=== PATIENT | male | born 1940 | race Hispanic/Latino ===

== ENCOUNTER 2016-03-17 08:25 | Emergency (ER) | payer MEDICARE ==
[2016-03-17] MEDS ORDERED: predniSONE 20 MG TAB ONE (08:54)
[2016-03-17] MEDS ORDERED: predniSONE 10 MG TAB ONE (08:54)
[2016-03-17] MEDS ORDERED: diphenhydrAMINE HCl 25 MG CAP ONE (08:54)
[2016-03-17] MEDS ORDERED: Famotidine 20 MG TAB ONE (08:54)
--- NOTE | 2016-03-17 09:28 | PICIS ---
[facility] EMERGENCY RECORD TRIAGE (TueMar 17, 2016 08:31 EPIE) TRIAGE NOTES: Pt states that his face and body started itching on Tuesday morning. Pt states that he drank coffee with a new creamer he has never tried. (TueMar 17, 2016 08:31 EPIE) PATIENT: NAME: Nilesh Wlash, AGE: 75, GENDER: male, : Tue1940, TIME OF GREET: TueMar 17, 2016 08:25, PREFERRED LANGUAGE: Turkmen, ETHNICITY: or , ECODE BILLING MAP: [facility], SSN: [id number], Zip Code: [address], KG WEIGHT: 70.31, PHONE: , , , PERSON ID: [id number], PCP: Richelle, Vinayak. (TueMar 17, 2016 08:31 EPIE) COMPLAINT: FACIAL SWELLING. (TueMar 17, 2016 08:31 EPIE) ADMISSION: URGENCY: 4 Non Urgent, ADMISSION SOURCE: Home, TRANSPORT: CAR, BED: TRIAGE. (TueMar 17, 2016 08:31 EPIE) TRIAGE SCREENING: Patient denies suicidal ideation, Patient denies presence of domestic violence. (08:32 EPIE) TREATMENTS IN PROGRESS: Treatments given Prehospital: none. (08:32 EPIE) PROVIDERS: TRIAGE NURSE: Pura Daley RN. (TueMar 17, 2016 08:31 EPIE) VITAL SIGNS: BP 92/50, Pulse 79, Resp 20, (Non-Labored), Temp 96.2, (Oral), O2 Sat 94, on Room Air, Time 03/17/2016 08:29. (08:29 EPIE) PREVIOUS VISIT ALLERGIES: No Known Drug Allergies. (TueMar 17, 2016 08:31 EPIE) No Known Drug Allergies. (08:32 EPIE) KNOWN ALLERGIES No Known Drug Allergies CURRENT MEDICATIONS (08:31 EPIE) Unknown VITAL SIGNS VITAL SIGNS: BP: 92/50, Pulse: 79, Resp: 20 (Non-Labored), Temp: 96.2 (Oral), O2 sat: 94 on Room Air, Time: 03/17/2016 08:29. (08:29 EPIE) BP: 94/52, Pulse: 73, Resp: 18 (Non-Labored), O2 sat: 95 on Room Air, Time: 03/17/2016 08:42. (08:42 EPIE) NURSING ASSESSMENT: SKIN (08:42 EPIE) CONSTITUTIONAL: Patient arrives ambulatory, Gait steady, History obtained from patient, Patient appears comfortable, Patient cooperative, Patient alert, Oriented to person, place and time, Skin warm, Skin dry, Skin normal in color, Mucous membranes pink, Mucous membranes moist, Patient is well-groomed, Pt states that his face and body started itching on Tuesday morning. Pt states that he drank coffee with a new creamer he has never tried. No SOB. PAIN: itching pain, diffuse body, Patient rates pain as 0 out of 10. &a-1R&a+25V*p+0X*x9020X*c202B*c15G*c2P*p-0X&a-25V&a+1R Name: Saravia Nilesh Jorge : 1940 M75 MedRec: [id number] AcctNum: [id number] Prepared: TueMar 17, 2016 21:29 by Interface Page 1 of 6 pMD [facility] EMERGENCY RECORD SKIN: Skin assessment findings include skin warm, Skin dry, Skin normal in color, Notes: Pt has discoloring on bilateral hands (darker). No obvious rash observed. NURSING PROCEDURE: DISCHARGE NOTE (09:01 EPIE) DISCHARGE: Patient discharged to home, ambulating without assistance, family driving, accompanied by other family member, Summary of Care printed/ provided, Discharge instructions given to patient, Simple or moderate discharge teaching performed, Prescriptions given and instructions on side effects given, Name of prescription(s) given: prednisone, Above person(s) verbalized understanding of discharge instructions and follow-up care. BELONGINGS: Belongings and valuables with patient upon arrival to the Emergency Department include:, Belongings and valuables with patient at time of discharge include:, Belongings remain with patient, Valuables remain with patient. MEDICATION ADMINISTRATION SUMMARY Drug Name: Pepcid oral, Dose Ordered: 20 mg, Route: Oral, Status: Given, Time: 09:00 03/17/2016, Drug Name: Benadryl Allergy, Dose Ordered: 25 mg, Route: Oral, Status: Given, Time: 09:00 03/17/2016, Drug Name: predniSONE oral, Dose Ordered: 50 mg, Route: Oral, Status: Given, Time: 09:00 03/17/2016, Detailed record available in Medication Service section. MEDICATION SERVICE (09:00 [facility]) Benadryl Allergy: Order: Benadryl Allergy (diphenhydramine HCl) - Dose: 25 mg : Oral Schedule: Now Ordered by: Supa Richardson MD Entered by: Supa Richardson MD TueMar 17, 2016 08:51 , Acknowledged by: Pura Daley RN TueMar 17, 2016 08:51 Documented as given by: Pura Daley RN TueMar 17, 2016 09:00 Patient, Medication, Dose, Route and Time verified prior to administration. Amount given: 25mg, Site: Medication administered P.O., Correct patient, time, route, dose and medication confirmed prior to administration, Patient advised of actions and side-effects prior to administration, Allergies confirmed and medications reviewed prior to administration. Pepcid oral: Order: Pepcid oral (famotidine) - Dose: 20 mg : Oral Schedule: Now Ordered by: Supa Richardson MD Entered by: Supa Richardson MD TueMar 17, 2016 08:51 , Acknowledged by: Pura Daley RN TueMar 17, 2016 08:52 Documented as given by: Pura Daley RN TueMar 17, 2016 09:00 Patient, Medication, Dose, Route and Time verified prior to &a-1R&a+25V*p+0X*k4569R*c202B*c15G*c2P*p-0X&a-25V&a+1R Name: Saravia Nilesh Jorge : 1940 M75 MedRec: [id number] AcctNum: [id number] Prepared: TueMar 17, 2016 21:29 by Interface Page 2 of 6 pMD [facility] EMERGENCY RECORD administration. Amount given: 20mg, Site: Medication administered P.O., Correct patient, time, route, dose and medication confirmed prior to administration, Patient advised of actions and side-effects prior to administration, Allergies confirmed and medications reviewed prior to administration. predniSONE oral: Order: predniSONE oral (prednisone) - Dose: 50 mg : Oral Schedule: Now Ordered by: Supa Richardson MD Entered by: Supa Richardson MD TueMar 17, 2016 08:50 , Acknowledged by: Pura Daley RN TueMar 17, 2016 08:51 Documented as given by: Pura Daley RN TueMar 17, 2016 09:00 Patient, Medication, Dose, Route and Time verified prior to administration. Amount given: 50mg, Site: Medication administered P.O., Correct patient, time, route, dose and medication confirmed prior to administration, Patient advised of actions and side-effects prior to administration, Allergies confirmed and medications reviewed prior to administration. HPI ALLERGY (08:52 BPIC) CHIEF COMPLAINT: Patient presents for evaluation of itching, Patient presents for evaluation of rash. HISTORIAN: History provided by patient, pt drank a coffee with new creamer 2 days ago and started having itching and a rash show up 5 hours later. the rash and itching has continued until this time. no breathing or swallowing difficulties. rash is red and pruritic on his arms and legs. ROS (08:53 BPIC) CONSTITUTIONAL: Negative constitutional review of systems, Historian denies chills, denies fever. EYES: Negative eye review of systems. ENT: Negative ears, nose, throat review of systems. CARDIOVASCULAR: Negative cardiovascular review of systems, Historian denies chest pain, denies palpitations. RESPIRATORY: Negative respiratory review of systems, Historian denies cough, denies shortness of breath. GI: Negative gastrointestinal review of systems, Historian denies abdominal pain, denies constipation, denies diarrhea. MUSCULOSKELETAL: Negative musculoskeletal review of systems. SKIN: see hpi. NEUROLOGIC: Negative neurologic review of systems. ENDOCRINE: Negative endocrine review of systems. HEMO/LYMPHATIC: Normal hematologic/lymphatic system review. PSYCHIATRIC: Negative psychiatric review of systems. NOTES: All other ROS is negative except as listed in HPI. &a-1R&a+25V*p+0X*d7283C*c202B*c15G*c2P*p-0X&a-25V&a+1R Name: Nilesh Walsh : 1940 M75 MedRec: [id number] AcctNum: [id number] Prepared: TueMar 17, 2016 21:29 by Interface Page 3 of 6 pMD [facility] EMERGENCY RECORD PAST MEDICAL HISTORY MEDICAL HISTORY: Past medical history includes cardiac history, coronary artery disease, Past medical history includes history of hyperlipidemia, high cholesterol, Past medical history includes history of hypertension. (08:32 EPIE) MALE SURGICAL HISTORY: Surgical history of coronary artery bypass graft surgery, four vessels, Date of surgery 03/15/11. (08:32 EPIE) SOCIAL HISTORY: Patient is a former tobacco user, smoked cigarettes, Patient quit smoking more than 10 years ago, , Patient denies alcohol use, Patient denies drug use. (08:32 EPIE) NOTES: I have reviewed and agree with the PMH/PSxH/FamHx/SocHx obtained by the nurse. (08:53 BPIC) PHYSICAL EXAM (08:53 BPIC) CONSTITUTIONAL: Vital signs reviewed, Patient appears non toxic, Patient alert and oriented to person, place and time, Pt is in no apparent distress. HEAD: Head exam included findings of head atraumatic, normocephalic. EYES: Eye exam included findings of eyelids normal to inspection, Pupils equally round and reactive to light, Extraocular muscles intact. ENT: ENT exam normal, Nose exam normal, no nasal deformity, no bleeding from nares, Pharynx exam normal, Mouth exam normal, mucous membranes moist. NECK: Neck exam included findings of normal range of motion, Trachea midline. RESPIRATORY CHEST: Respiratory and chest exam normal, Breath sounds clear, No wheezing, No rales, Chest exam included findings of chest movement symmetrical, Chest expansion equal. CARDIOVASCULAR: Cardiovascular assessment normal, Cardiovascular exam included findings of heart rate regular rate and rhythm, Heart sounds normal. ABDOMEN MALE: Abdominal exam included findings of abdomen nontender, Bowel sounds normal, no mass, no pulsatile masses, no peritoneal signs, no rigidity, no guarding, no rebound. BACK: Back exam included findings of normal inspection, range of motion normal, no costovertebral angle tenderness. UPPER EXTREMITY: Upper extremity exam included findings of inspection normal, Range of motion normal. LOWER EXTREMITY: Lower extremity exam included findings of inspection normal, Range of motion normal. NEURO: Neuro exam findings include patient oriented to person, place and time, Speech normal, no focal motor deficits, no focal sensory deficits. SKIN: Rash present, macular, erythematous patches on both arms. LYMPHATIC: Lymphatic exam normal. PSYCHIATRIC: Psychiatric exam included findings of patient &a-1R&a+25V*p+0X*s1928E*c202B*c15G*c2P*p-0X&a-25V&a+1R Name: Nilesh Walsh : 1940 M75 MedRec: [id number] AcctNum: [id number] Prepared: TueMar 17, 2016 21:29 by Interface Page 4 of 6 pMD [facility] EMERGENCY RECORD oriented to person place and time, Normal affect. EVENTS TRANSFER: Triage to Emergency Triage. (08:31 EPIE) Emergency Triage to Emergency Room -02. (08:32 EPIE) Removed from Emergency Emergency Room -02. (09:04 EPIE) DOCTOR NOTES (08:54 BPIC) TEXT: I discussed the diagnosis with the patient prior to discharge. All questions were answered. There is no indication for admission currently and the patient will follow up with his primary care physician. Any pertinent labs or imaging was reviewed and dicussed with the patient. If any new or emergent symptoms occur, the patient will return to the emergency department. PROBLEM LIST No recorded problems DIAGNOSIS (08:55 BPIC) FINAL: PRIMARY: rash, ADDITIONAL: Allergic reaction. DISPOSITION PATIENT: Disposition Type: Discharge, Disposition: *Discharge Home, Condition: Good. (08:55 BPIC) Patient left the department. (09:04 EPIE) INSTRUCTION (08:56 BPIC) DISCHARGE: ALLERGIC REACTION FOOD. FOLLOWUP: Richelle, Clinic, Clinic, [address] [place] [id number], . SPECIAL: Thank you for choosing [facility] Emergency Department for your care today! Please follow up with your primary doctor in the next 2-3 days. Return to the emergency department with any other worsening or emergent symptoms. God bless you!. PRESCRIPTION (08:56 BPIC) predniSONE oral: TABLET : 20 mg : ORAL : Quantity: 40 Unit: mg Route: ORAL Schedule: once a day Dispense: 10 Unit: tab(s) May substitute. Refills: No Refills . NOTES: No Refills. IMAGING *DISCHARGE INSTRUCTIONS RECEIPT: Image captured from scanner. (09:03 EPIE) *SUPPLY CHARGE SHEET: Image captured from scanner. (09:04 EPIE) ADMIN (21:16 BPIC) &a-1R&a+25V*p+0X*f1420H*c202B*c15G*c2P*p-0X&a-25V&a+1R Name: Nilesh Walsh : 1940 M75 MedRec: [id number] AcctNum: [id number] Prepared: TueMar 17, 2016 21:29 by Interface Page 5 of 6 pMD [facility] EMERGENCY RECORD DIGITAL SIGNATURE: MD Richardson Bryan. Gaspar: BPIC=MD Richardson Bryan EPIE=OSVALDO Daley, Pura &a-1R&a+25V*p+0X*n0976Q*c202B*c15G*c2P*p-0X&a-25V&a+1R Name: Nilesh Walsh : 1940 M75 MedRec: [id number] AcctNum: [id number] Prepared: TueMar 17, 2016 21:29 by Interface Page 6 of 6 pMD MTDD
== END 2016-03-17 09:01 | disposition home or self-care (01) ==
LOC: NAV ERS 08:25
DX: T78.40XA Allergy, unspecified, initial encounter (principal); R21 Rash and other nonspecific skin eruption; I25.10 Atherosclerotic heart disease of native coronary artery without angina pectoris; E78.00 Pure hypercholesterolemia, unspecified; E78.5 Hyperlipidemia, unspecified; I10 Essential (primary) hypertension; Z95.1 Presence of aortocoronary bypass graft; Z87.891 Personal history of nicotine dependence
CPT/HCPCS: 99282; J7506; J7512

== ENCOUNTER 2016-06-30 08:50 | Outpatient (CLI) | payer MEDICARE ==
[2016-06-30 09:53] LABS: ALT (SGPT) 18 U/L (0-55); AST (SGOT) 15 U/L (5-34); Albumin 3.9 g/dL (3.4-4.8); Alkaline Phosphatase 124 U/L (40-150); Anion Gap 15 mmol/L (10-20); BUN (Urea Nitrogen) 19 mg/dL (8.4-25.7); Bilirubin, Direct 0.2 mg/dL (0.1-0.3); Bilirubin, Total 0.5 mg/dL (0.2-1.2); Calc. Creatinine Clearance 0 mL/min (70-130); Calcium 9.3 mg/dL (7.8-10.44); Carbon Dioxide 20 mmol/L (23-31); Cardiac Risk 3.8 (Less than 4.5); Chloride 108 mmol/L (98-107); Cholesterol 136 mg/dL (< 200 Desired); Estimated GFR-MDRD 68; Glucose 118 mg/dL (83-110); HDL Cholesterol 36 mg/dL (>60 Neg Risk); LDL Cholesterol, Calculated 75 mg/dL; Potassium 4.2 mmol/L (3.5-5.1); Protein, Total 7.8 g/dL (5.8-8.1); Sodium 139 mmol/L (136-145); Triglycerides 125 mg/dL (Less than 150)
== END 2016-06-30 08:51 | disposition home or self-care (01) ==
LOC: NAV LAB 08:50
PROVIDERS: ATTEND Internal Medicine Cardiovascular Disease
DX: E78.2 Mixed hyperlipidemia (principal); I36.9 Nonrheumatic tricuspid valve disorder, unspecified; N18.9 Chronic kidney disease, unspecified
CPT/HCPCS: 36415; 80048; 80061; 80076

== ENCOUNTER 2017-08-21 13:50 | Emergency (ER) | payer MEDICARE ==
[2017-08-21] MEDS ORDERED: Sodium Chloride 0.9% 1,000 ML ONE (14:25)
[2017-08-21] MEDS ORDERED: Ondansetron HCl/PF 4 MG/2 ML Vial ONE (14:25)
[2017-08-21] MEDS ORDERED: Dicyclomine 20 MG TAB ONE (14:25)
[2017-08-21 14:33] LABS: #Monocytes 0.8 thou/uL (0.11-0.59); #Neutrophils 7.9 thou/uL (1.40-6.50); %Basophils 0.5 % (0.0-1.0); %Eosinophils 0.3 % (0.0-10.0); %Lymphocytes 10.5 % (21.0-51.0); %Monocytes 8.3 % (0.0-10.0); %Neutrophils 80.4 % (42.0-75.0); Hemoglobin 12.6 g/dL (14.0-18.0); Mean Corpuscular HGB CONC 33.5 g/dL (32.0-36.0); Mean Corpuscular Hemoglobin 30.1 pg (27.0-31.0); Mean Corpuscular Volume 89.7 fl (80.0-94.0); Mean Platelet Volume 10.2 fL (7.4-10.4); Platelet Count 154 thou/uL (130-400); RBC Distribution Width 12.3 % (11.5-14.5); White Blood Cell (WBC) Count 9.8 thou/uL (4.8-10.8)
[2017-08-21 14:47] LABS: ALT (SGPT) 15 U/L (8-55); AST (SGOT) 16 U/L (5-34); Albumin 3.6 g/dL (3.4-4.8); Alkaline Phosphatase 79 U/L (40-150); Anion Gap 15 mmol/L (10-20); BUN (Urea Nitrogen) 21 mg/dL (8.4-25.7); Bilirubin, Total 1.2 mg/dL (0.2-1.2); Calc. Creatinine Clearance 0 mL/min (70-130); Calcium 9.1 mg/dL (7.8-10.44); Carbon Dioxide 26 mmol/L (23-31); Chloride 99 mmol/L (98-107); Estimated GFR-MDRD 43; Globulin 3.6 g/dL (2.4-3.5); Glucose 102 mg/dL (83-110); Potassium 3.6 mmol/L (3.5-5.1); Protein, Total 7.2 g/dL (5.8-8.1); Sodium 136 mmol/L (136-145)
[2017-08-21 14:48] LABS: CKMB 1.7 ng/mL (0-6.6); Troponin I 0.017 ng/mL (< 0.028)
== END 2017-08-21 16:31 | disposition home or self-care (01) ==
LOC: NAV ERS 13:50
DX: R11.2 Nausea with vomiting, unspecified (principal); R19.7 Diarrhea, unspecified; I25.10 Atherosclerotic heart disease of native coronary artery without angina pectoris; E78.5 Hyperlipidemia, unspecified; I10 Essential (primary) hypertension; Z87.891 Personal history of nicotine dependence; Z79.899 Other long term (current) drug therapy; Z79.891 Long term (current) use of opiate analgesic
CPT/HCPCS: 80053; 82553; 84484; 85025; 96361; 96374; J2405; J7050